=== PATIENT | female | born 1955 | race Caucasian/White ===

== ENCOUNTER 2017-03-31 10:44 | Emergency (ER) | payer OTHER ==
[~2017-03-31] VITALS: Ht 167.6 cm; Wt 64.0 kg
[~2017-03-31 10:44] MED LIST: HYDR25TA4 PO; LOVA40TA PO; PREM125 PO
[2017-03-31 10:50] VITALS: BP 166/75; PULSE 66; RESP 17; O2SAT 98
--- NOTE | 2017-03-31 11:03 | ED.REPORT ---
HPI-Chest Pain 40 and Over Date of Service Mar 31, 2017 ED Provider: Konstantin Talley MD History of Present Illness: Sent from [facility] The pt is a 62 y/o female w/ a hx of hyperlipidemia presenting to the ED complaining of chest pain onset 2 days ago. The pain woke her up while she was sleeping and has been intermittent since then, lasting from a few minutes to hours. She describes having heart palpitations and feeling like her heart is jumping out of her chest. She also describes L arm pain and sitting down and relaxing decreasing her symptoms. The pt reports never experiencing these symptoms before and her symptoms worsening. Denies SOB, diaphoresis, dizziness , lightheadedness. The pt was sent here from urgent care. Nursing Notes Stated Complaint: CHEST PAIN Chief Complaint: Chest Pain Nursing Notes Reviewed: Yes ([employer] not reconicled) Allergies: Coded Allergies: No Known Drug Allergies (Verified Allergy, Unknown, 03/24/15) Scheduled Estrogens Conjugated (Premarin) 1.25 Mg Tab 1.25 MG PO DAILY Hydrochlorothiazide (Hydrochlorothiazide) 25 Mg Tablet 25 MG PO DAILY Lovastatin (Lovastatin) 40 Mg Tablet 40 MG PO HS Potassium Chloride (Potassium Chloride) 10 Meq Tab.er.prt 10 MEQ PO DAILY TAKE WITH FOOD General Time Seen by MD: 11:02 Chief Complaint Chest pain Hx Obtained From: Patient Sudden in Onset?: Yes Onset Occurred: 2 days ago Recent Healthcare: No recent hospitalization, Recent doctor visit Similar Sx Previous: No Past Medical History Past Medical History mild Meniere's Reports: Hyperlipidemia, Denies: Hypertension (on a diuretic - but for Meniere's) Past Surgical History Hysterectomy Family History Two brothers w/CAD, father of CAD Reports: Coronary artery disease Smoking History Former Smoker Social History Alcohol Use: Denies alcohol use Drug Use: Denies drug use Review of Systems Respiratory: Denies: Shortness of breath Cardiovascular: Reports: Chest pain Musculoskeletal: Reports: Extremity pain (L arm ) Skin: Denies Diaphoresis Neurologic: Denies: Dizziness, Lightheaded Complete sys rev & neg: except as marked. Physical Exam Initial Vital Signs Vital Signs (First) Date Time Temp Pulse Resp B/P Pulse Ox O2 Delivery O2 Flow Rate FiO2 03/31/17 10:50 36.5 66 17 166/75 98 Room Air Initial VS: Reviewed, Vital signs normal (HTN) Head / Eyes: Atraumatic, Normocephalic, PERRL Neck: Supple, Non-tender, Full range of motion Extremities: Vascular intact, Neuro intact, No swelling, No tenderness Skin: Warm, Dry, No cyanosis Neurologic: Alert, Oriented, Nonfocal Psychiatric: Mood/affect normal, Behavior normal, Normal thought content General/Constitutional: Awake, Alert Respiratory / Chest: Atraumatic, Breath sounds NL, Breath sounds = bilat Cardiovascular: Heart rate NL, Regular rhythm, Heart sounds NL Abdomen: Atraumatic, Soft, Non-tender Interpretation & Diagnostics Lab Results Interpretation Result Diagram: 03/31/17 1020 03/31/17 1020 Test 03/31/17 10:20 White Blood Count 6.1th/mm3 (3.8-10.1) Red Blood Count 4.96mil/mm3 (3.90-5.20) Hemoglobin 14.8g/dL (12.0-15.6) Hematocrit 42.3% (35.0-46.0) Mean Corpuscular Volume 85.3fL (81-100) Mean Corpuscular Hemoglobin 29.8pg (27.0-35.0) Mean Corpuscular Hemoglobin Concent 35.0% (32.0-37.0) Red Cell Distribution Width 13.6% (12.3-15.4) Platelet Count 302bil/L (150-400) Neutrophils (%) (Auto) 59.8% (40-74) Lymphocytes (%) (Auto) 29.3% (14-46) Monocytes (%) (Auto) 8.8% (4-12) Eosinophils (%) (Auto) 1.3% (0-5) Basophils (%) (Auto) 0.8% (0-3) D-Dimer < 0.50mg/L FEU (<0.50) Sodium Level 140mEq/L (134-144) Potassium Level 3.2mEq/L (3.5-5.2) Chloride Level 97mEq/L (97-108) Carbon Dioxide Level 23mmol/L (18-29) Blood Urea Nitrogen 13mg/dL (8-27) Creatinine 0.62mg/dL (0.57-1.00) Estimat Glomerular Filtration Rate 139mL/min (>59) Glucose Level 106mg/dL (60-99) Calcium Level 9.8mg/dL (8.5-10.1) Magnesium Level 1.8mg/dL (1.6-2.6) Total Bilirubin 0.4mg/dL (0.0-1.2) Aspartate Amino Transf (AST/SGOT) 30U/L (0-50) Alanine Aminotransferase (ALT/SGPT) 24U/L (0-32) Alkaline Phosphatase 50U/L (25-165) Troponin T 0.010ug/L (0.0-0.011) Total Protein 8.1g/dL (6.4-8.4) Albumin 4.8g/dL (3.4-5.0) Thyroid Stimulating Hormone (TSH) 2.770uIU/mL (0.450-4.500) Lab Results Interpretation: CBC normal CMP mild hypokalemia Troponin negative despite several days continue sent ECG Interpretation ECG Interpretation: NSR Sinus braddycardia Nonspecific borderline depression on V4,V5, V6 no reciprocal changes PVC during exam, symptomatic 12 lead has a PAC Time: 12:00 Interpreted by: ED physician X-Ray Chest Interpretation Chest Xray Interpretation: IMPRESSION: No acute disease Dictated by: All Gregory M.D. on 03/31/2017 at 12:02 Approved by: All Gregory M.D. on 03/31/2017 at 12:03 View: Portable, 1 view Interpretation / Wet Read by: Interpret - Radiologist Re-Eval/Medical Decision Med Decision/Clinical Course HEART score 2 putting patient at low risk for MACE This is a 62-year-old female referred for further evaluation by urgent care with a complaint of chest discomfort and mainly palpitations. She has had increasing palpitations, went to urgent care and therefore sent prescribed. She has no exertional chest discomfort or prior history of cardiac disease, she does have a risk factor of hyperlipidemia. She has no findings suggest pulmonary embolism or DVT. On exam she does had intermittent PACs and PVCs corresponding with symptoms. She otherwise appears well. ischemic changes are evident on EKG. Blood work is notable for mild hypokalemia -has been very hot, the patient is on a diuretic for mild Meniere's. At this point the patient appears to have symptomatic PACs and PVCs. Her thyroid is normal. Her presentation is very atypical for coronary syndrome, and the patient's A HEART score is 2-and in this setting with negative biomarkers and reassuring labs I am not finding indication that the patient requires additional testing, and discharge is appropriate. The patient is being initiated on low-dose potassium 10 mill once daily with instructions to follow-up with the PCP for reevaluation. For routine and return precautions provided. Source of Hx: Old records Time of Eval: 13:33 Re-Evaluation/Progress Note: Pt rechecked. Informed pt of plan for treatment. Pt understands and agrees with plan for treatment. F/U instructions and RTER warnings given. All questions addressed. Differential Diagnosis: Negative: Acute coronary syndrome, Acute myocardial infarct, Asthma exacerbation, Chest pain, Chest pain, acute, Cholecystitis, Cholelithiasis, Congestive heart failure, Costochondritis, Esophageal rupture, Gun shot wound chest, Hypertroph cardiomyopathy, Catia-Pelaez syndrome, Mitral stenosis, Peptic ulcer disease, Pericarditis, Pneumomediastinum, Pneumonia, Pneumothorax, Pulmonary edema, Pulmonary embolism, Rib fracture, Stab wound chest Counseled Regarding: Diagnosis, Lab results, Need for follow-up, When/why to return to ED Discharge & Departure Primary Impression: Palpitations Additional Impressions: Premature atrial contractions Premature ventricular contractions Hypokalemia Disposition: Home Discharge Condition All VS Reviewed: Yes Condition: Stable Additional Instructions: 1. Your heart tests were normal-with no markers or findings of a heart attack. 2. You have were called premature ventricular contractions, premature atrial contractions causing the sense of palpitations. While annoying, these are benign. He may likely be caused by the fact that her potassium is on the low side (3.3). 3. Take potassium 10 mEq daily for the next 10 days. Call your doctor tomorrow to set up a recheck and a repeat potassium in a week or 2. 4. Activities as tolerated. 5. Return if new or worsening symptoms occur. Referrals: Leela Beasley MD (PCP) Scribe Attestation Portions of this note were transcribed by Barry Rivas. I, Dr. Pryor personally performed the history, physical exam and medical decision-making; I reviewed and confirmed the accuracy of the information in the transcribed note. Signed by : Josephine Freed, 03/31/17 and 1418. copies to: Leela Beasley MD, Matthew F MD Mar 31, 2017 11:03 Barry Rivas Mar 31, 2017 14:13
[2017-03-31 11:08] LABS: BASOPHILS % (AUTO) 0.8 % (0-3); EOSINOPHILS % (AUTO) 1.3 % (0-5); MONOCYTES % (AUTO) 8.8 % (4-12); Mean Corpuscular Hemoglobin 29.8 pg (27.0-35.0); Mean Corpuscular Volume 85.3 fL (81-100); NEUTROPHILS % (AUTO) 59.8 % (40-74); Platelet Count 302 bil/L (150-400)
[2017-03-31 11:38] LABS: TROPONIN T 0.01 ug/L (0.0-0.011)
[2017-03-31 11:50] LABS: Magnesium 1.8 mg/dL (1.6-2.6)
--- NOTE | 2017-03-31 12:06 | DRSVH ---
PROCEDURE: X-RAY CHEST ONE VIEW, PORTABLE ([id number]) INDICATIONS: CHEST PAIN TECHNIQUE: One view of the chest was acquired. COMPARISON: None. FINDINGS: Surgical changes and devices: None. Lungs and pleura: No pleural effusions or pneumothorax. Lungs are clear. Mediastinum: Mediastinal contours appear normal. Heart size is normal. Bones and chest wall: No suspicious bony lesions. Overlying soft tissues appear unremarkable. IMPRESSION: No acute disease Dictated by: All Gregory M.D. on 03/31/2017 at 12:02 Approved by: All Gregory M.D. on 03/31/2017 at 12:03
[2017-03-31] MEDS ORDERED: Potassium Chloride 20 mEq/15 mL 15mL Oral Soln PO ONE (13:25)
[2017-03-31 13:49] VITALS: BP 127/58; PULSE 64; RESP 15; O2SAT 96
[2017-03-31 13:50] VITALS: BP 127/58; PULSE 64; RESP 15; O2SAT 96
[2017-03-31] MEDS ORDERED: POTA10TA38 PO (13:50)
== END 2017-03-31 13:58 ==
LOC: SED 10:44
DX: I49.1 Atrial premature depolarization (principal); I49.3 Ventricular premature depolarization; E87.6 Hypokalemia; R00.2 Palpitations; E78.5 Hyperlipidemia, unspecified; Z87.891 Personal history of nicotine dependence